=== PATIENT | male | born 1960 | race Caucasian/White ===

== ENCOUNTER 2018-01-15 19:55 | Emergency (ER) | payer BC, MEDICARE, OTHER ==
[~2018-01-15] VITALS: Ht 167.6 cm; Wt 91.0 kg
[2018-01-16] MEDS ORDERED: TETANUS, DIPHTHERIA, PERTUSSIS VAC/PF 0.5ML (>7YR OLD) IM ONE (00:15)
[2018-01-16 01:14] VITALS: BP 138/75
== END 2018-01-16 02:06 | disposition home or self-care (01) ==
LOC: ER 19:55
DX: S61.217A Laceration without foreign body of left little finger without damage to nail, initial encounter (principal); W25.XXXA Contact with sharp glass, initial encounter; Y93.89 Activity, other specified; Y92.9 Unspecified place or not applicable; Z88.6 Allergy status to analgesic agent
CPT/HCPCS: 73130; 90471; 90715; 99284

== ENCOUNTER 2023-03-29 06:15 | Emergency (ER) | payer MEDICAID, OTHER ==
[~2023-03-29] VITALS: Ht 172.7 cm; Wt 84.0 kg
[2023-03-29 06:36] VITALS: O2SAT 97
[2023-03-29 07:18] LABS: BASOPHILS % 0.2 % (0.0-2.0); EOSINOPHILS % 0.8 % (0.0-5.0); HEMATOCRIT. 46.5 % (42.0-52.0); HEMOGLOBIN. 15.1 g/dL (14.0-18.0); LYMPHOCYTES % 21.5 % (20.0-50.0); MEAN CORPUSCULAR HEMOGLOBIN 26.9 pg (28.0-32.0); MEAN CORPUSCULAR HGB CONC 32.4 g/dL (31.0-37.0); MEAN PLATELET VOLUME 8.1 fl (7.4-10.4); MONOCYTES % 5.7 % (2.0-8.0); NEUTROPHILS % 71.8 % (40.0-76.0); PLATELET 300 x1000/uL (130-400); RED CELL DISTRIBUTION WIDTH 16.6 % (11.6-14.6); WHITE BLOOD COUNT 12.8 x1000/uL (4.5-11.0)
[2023-03-29 07:33] LABS: CLARITY URINE CLEAR (CLEAR); COLOR URINE YELLOW (YELLOW); GLUCOSE URINE NEGATIVE (NEGATIVE); KETONES URINE NEGATIVE (NEGATIVE); LEUKOCYTE ESTERASE URINE 1+ (NEGATIVE); NITRITE URINE NEGATIVE (NEGATIVE); OCCULT BLOOD URINE NEGATIVE (NEGATIVE); PH URINE 5.5 (4.5-8.0); PROTEIN URINE NEGATIVE (NEGATIVE); SPECIFIC GRAVITY URINE 1.009 (1.005-1.030); UROBILINOGEN URINE 0.2 E.U./dL (0.2-1.0)
[2023-03-29 07:41] LABS: CHLORIDE 104 mEq/L (98-107); INDEX HEMOLYSI 1 (1-3); INDEX ICTERIC 1 (1-4); INDEX LIPEMIC 1 (1-3); POTASSIUM 3.5 mEq/L (3.5-5.1); SODIUM 138 mEq/L (136-145)
[2023-03-29 07:47] LABS: ALANINE AMINOTRANSFERASE 53 IU/L (13-61); ALBUMIN 3.4 g/dL (3.4-5.0); ASPARTATE AMINOTRANSFERASE 28 IU/L (15-37); BILIRUBIN TOTAL 0.4 mg/dL (0.1-1.0); CALCIUM 9.2 mg/dL (8.5-10.1); CARBON DIOXIDE 28 mEq/L (21-32); CREATININE 0.9 mg/dL (0.6-1.3); GLUCOSE 159 mg/dL (70-105); PROTEIN TOTAL 8.5 g/dL (6.0-8.3); UREA NITROGEN BLOOD 13 mg/dL (7-21)
[2023-03-29 08:29] LABS: SQUAMOUS EPITHELIAL CELL URINE 1+ /lpf (RARE/1+)
[2023-03-29 08:30] LABS: BACTERIA URINE TRACE
[2023-03-29 08:31] LABS: RBC URINE NONE SEEN /hpf (0-2)
[2023-03-29 09:51] VITALS: BP 145/62; PULSE 87; RESP 16; TEMP 98.4
== END 2023-03-29 09:53 | disposition home or self-care (01) ==
LOC: ER 06:15
DX: R33.9 Retention of urine, unspecified (principal); N40.0 Benign prostatic hyperplasia without lower urinary tract symptoms; Z88.6 Allergy status to analgesic agent
CPT/HCPCS: 36415; 51702; 80053; 81003; 83605; 84145; 85025; 99284